=== PATIENT | male | born 1980 | race African-American/Black ===

== ENCOUNTER 2020-03-25 19:32 | Emergency (ER) | payer OTHER ==
[~2020-03-25] VITALS: Ht 185.4 cm; Wt 88.5 kg
[2020-03-25 19:38] VITALS: BP 149/77
--- NOTE | 2020-03-25 19:39 | NUR ---
PT HONG BLS. TAKEN TO BED 7
--- NOTE | 2020-03-25 19:40 | NUR ---
Dr. De La Paz examining patient.
--- NOTE | 2020-03-25 19:40 | NUR ---
RECEIVED PT AWAKE AND ALERT WITH C/O ABDOMINAL PAIN. "I HAD SURGERY IN NOVEMBER AND NOW MY ABDOMEN IS HURTING" PT STATES HAD BLOOD CLOT REMOVED FROM HEAD AFTER SEVERAL TRAUMATIC INJURIES AND EXPERIENCING SEIZURES. IS AWAKE AND ALERT. ABDOMEN IS SOFT AND TENDER. Addendum: 03/25/20 at 2020 by PATIENCE PAIN RATED 10/10
[2020-03-25] MEDS ORDERED: LORazepam 1 MG TAB PO ONE (19:50)
[2020-03-25 20:19] LABS: BASOPHILS # (AUTO) 0.1 K/uL (0.00-0.22); BASOPHILS % (AUTO) 1.6 % (0.0-2.0); EOSINOPHILS % (AUTO) 0.8 % (0.0-4.0); HEMATOCRIT 32.4 % (36-52); HEMOGLOBIN 10.9 g/dL (12.0-18.0); LYMPHOCYTES # (AUTO) 1.7 K/uL (2.0-11.5); LYMPHOCYTES % (AUTO) 41.8 % (20.5-51.1); MEAN CORPUSCULAR HEMOGLOBIN 28 pg (27-31); MEAN CORPUSCULAR HGB CONC 34 g/dL (33-37); MEAN CORPUSCULAR VOLUME 83.4 fL (80-94); MONOCYTES # (AUTO) 0.5 K/uL (0.8-1.0); MONOCYTES % (AUTO) 13.4 % (1.7-9.3); NEUTROPHILS # (AUTO) 1.7 K/uL (1.8-7.7); NEUTROPHILS % (AUTO) 42.4 % (42.2-75.2); PLATELET COUNT (AUTO) 294 K/uL (140-450); RED BLOOD CELL COUNT(AUTO) 3.88 MIL/uL (4.20-6.10); RED CELL DISTRIBUTION WIDTH 17.2 % (11.6-13.7)
[2020-03-25] MEDS ORDERED: ONDANSETRON 4 MG ODT ONE (20:23)
[2020-03-25] MEDS ORDERED: ONDANSETRON 4 MG ODT PO ONE (20:25)
[2020-03-25 20:34] LABS: ANION GAP 14.5 (8-16); CARBON DIOXIDE 29.2 mmol/L (21-32); TOTAL BILIRUBIN 0.3 mg/dL (0.0-1.0)
[2020-03-25 20:40] LABS: POTASSIUM 2.7 mmol/L (3.5-5.1)
--- NOTE | 2020-03-25 21:51 | NUR ---
Patient discharged with v/s stable. Written and verbal after care instructions given and explained. Patient alert, oriented and verbalized understanding of instructions. Ambulatory with steady gait. All questions addressed prior to discharge. ID band removed. Patient advised to follow up with PMD. Rx of ativan, k-dur, zofran ODT given. Patient educated on indication of medication including possible reaction and side effects. Opportunity to ask questions provided and answered.
[2020-03-25 21:52] VITALS: BP 114/64
== END 2020-03-25 21:51 | disposition home or self-care (01) ==
LOC: MED 19:32
DX: E87.6 Hypokalemia (principal); R10.9 Unspecified abdominal pain; R11.0 Nausea; R56.9 Unspecified convulsions; Z98.890 Other specified postprocedural states
CPT/HCPCS: 36415; 80053; 83690; 85025; 99283; Q0162

== ENCOUNTER 2020-03-25 22:58 | Emergency (ER) | payer OTHER ==
[~2020-03-25] VITALS: Ht 180.3 cm; Wt 82.6 kg
--- NOTE | 2020-03-25 22:58 | NUR ---
to bed 8 via ambulance s/p sz. WAS D/C'D FROM THIS ER EARLIER THIS EVENING. PTWENT HOME AND HAD ANOTHER SEIZURE. IS NOW AWAKE ALERT AND ORIENTED. SKIN WARM AND DRY, RESPIRATIONS REGULAR AND UNLABORED, NO SZ ACTIVITY NOTED. SZ PRECAUTIONS IN PLACE
[2020-03-25 23:02] VITALS: BP 134/66
--- NOTE | 2020-03-25 23:02 | NUR ---
PT HONG BLS. TAKEN TO BED 8
--- NOTE | 2020-03-25 23:31 | NUR ---
DR. COLES AT BEDSIDE FOR EXAM
[2020-03-25] MEDS ORDERED: NACL 0.9% 500 ML IV ONE (23:45)
[2020-03-25] MEDS ORDERED: levETIRAcetam 1,000 MG in NACL 0.9% 100 ML IV ONE (23:45)
[2020-03-26] MEDS ORDERED: levETIRAcetam 100 MG/ML VIAL IV ONE (00:24)
--- NOTE | 2020-03-26 01:45 | NUR ---
HAS BEEN DOZING OFF AND ON. READY FOR DISCHARGE. IV D/C'D CATHETER INTACT. NO SZ ACTIVITY NOTED
== END 2020-03-26 01:45 | disposition home or self-care (01) ==
LOC: MED 22:58
DX: R56.9 Unspecified convulsions (principal); Z98.890 Other specified postprocedural states
CPT/HCPCS: 96365; 99284; J1953; J7030

== ENCOUNTER 2020-04-17 21:06 | Emergency (ER) | payer OTHER ==
[~2020-04-17] VITALS: Ht 177.8 cm; Wt 88.5 kg
[2020-04-17 22:06] VITALS: BP 148/76
[2020-04-18] MEDS ORDERED: levETIRAcetam 500 MG TAB PO ONE (00:30)
[2020-04-18 01:00] LABS: BASOPHILS # (AUTO) 0.2 K/uL (0.00-0.22); BASOPHILS % (AUTO) 3.8 % (0.0-2.0); EOSINOPHILS % (AUTO) 0.8 % (0.0-4.0); HEMOGLOBIN 11.7 g/dL (12.0-18.0); LYMPHOCYTES # (AUTO) 1.9 K/uL (2.0-11.5); LYMPHOCYTES % (AUTO) 40.8 % (20.5-51.1); MEAN CORPUSCULAR HEMOGLOBIN 29 pg (27-31); MEAN CORPUSCULAR HGB CONC 33 g/dL (33-37); MEAN CORPUSCULAR VOLUME 85.7 fL (80-94); MONOCYTES # (AUTO) 0.5 K/uL (0.8-1.0); MONOCYTES % (AUTO) 11.3 % (1.7-9.3); NEUTROPHILS % (AUTO) 43.3 % (42.2-75.2); PLATELET COUNT (AUTO) 237 K/uL (140-450); RED BLOOD CELL COUNT(AUTO) 4.09 MIL/uL (4.20-6.10); RED CELL DISTRIBUTION WIDTH 18.8 % (11.6-13.7); WHITE BLOOD COUNT (AUTO) 4.7 K/uL (4.8-10.8)
[2020-04-18 01:27] LABS: ANION GAP 18.8 (8-16); CARBON DIOXIDE 26.8 mmol/L (21-32); CREATININE 1.1 mg/dL (0.6-1.3)
[2020-04-18 01:37] LABS: POTASSIUM 2.6 mmol/L (3.5-5.1)
--- NOTE | 2020-04-18 01:40 | NUR ---
DR CARPENTER NOTIFIED OF CRITICAL LAB VALUE---K 2.6 AND SERUM ALCOHOL 428
[2020-04-18] MEDS ORDERED: MAG SULF 2000 MG/WATER PREMIX 50 ML IV ONE ×2 (02:40→03:10)
[2020-04-18] MEDS ORDERED: POTASSIUM CHL 30 MEQ/ D5-1/2NS 1,000 ML IV ONE (02:40)
--- NOTE | 2020-04-18 03:20 | NUR ---
MAG SULFATE STARTED. RUNNING @ 25ML/HR
[2020-04-18] MEDS ORDERED: POTASSIUM CHL 40 MEQ/ D5-1/2NS 1,000 ML IV ONE (04:10)
--- NOTE | 2020-04-18 07:16 | NUR ---
RECEIVED REPORT FROM DEVEN PARDO FOR CONTINUITY OF CARE. PER REPORT, MAG AND K-RIDER WAS STARTED DURING SALESPERSON FLOWERS.
[2020-04-18] MEDS ORDERED: POTASSIUM CHLORIDE 10 MEQ TABER PO SCH (07:30)
[2020-04-18] MEDS ORDERED: CYANOCOBALAMIN 1000 MCG/ML VIAL IM ONE (10:35)
[2020-04-18] MEDS ORDERED: THIAMINE 200 MG/2 ML VIAL IM ONE (10:35)
[2020-04-18 10:58] VITALS: BP 148/76
--- NOTE | 2020-04-18 10:59 | NUR ---
Patient does not wish to proceed with medical care recommended by DR. AUSTIN. Patient given information related to possible complications, up to and including , which could occur as a result of leaving hospital at this time. Patient verbalizes understanding of risks involved leaving against medical advice. Patient has signed AMA form.
[2020-04-19] MEDS ORDERED: CYANOCOBALAMIN 1,000 MCG TAB PO SCH (09:00)
== END 2020-04-18 10:54 | disposition left against medical advice (07) ==
LOC: MED 21:06
DX: R56.9 Unspecified convulsions (principal); F10.129 Alcohol abuse with intoxication, unspecified; E87.6 Hypokalemia; Y90.9 Presence of alcohol in blood, level not specified
CPT/HCPCS: 36415; 70450; 80048; 85025; 99285; G0482; J3420; J3475; J3411

== ENCOUNTER 2020-04-18 20:50 | Emergency (ER) | payer OTHER ==
[~2020-04-18] VITALS: Ht 182.9 cm; Wt 88.5 kg
[2020-04-18 20:58] VITALS: BP 144/92
[2020-04-18 23:16] LABS: ANION GAP 16.3 (8-16); CARBON DIOXIDE 28.7 mmol/L (21-32); CREATININE 0.8 mg/dL (0.6-1.3)
[2020-04-18 23:25] LABS: MAGNESIUM 2.1 mg/dL (1.8-2.4)
[2020-04-18 23:50] LABS: BASOPHILS # (AUTO) 0.1 K/uL (0.00-0.22); BASOPHILS % (AUTO) 3.8 % (0.0-2.0); EOSINOPHILS % (AUTO) 1.4 % (0.0-4.0); HEMATOCRIT 31.9 % (36-52); HEMOGLOBIN 10.8 g/dL (12.0-18.0); LYMPHOCYTES # (AUTO) 1.4 K/uL (2.0-11.5); LYMPHOCYTES % (AUTO) 39.1 % (20.5-51.1); MEAN CORPUSCULAR HEMOGLOBIN 29 pg (27-31); MEAN CORPUSCULAR HGB CONC 34 g/dL (33-37); MEAN CORPUSCULAR VOLUME 86.2 fL (80-94); MONOCYTES # (AUTO) 0.3 K/uL (0.8-1.0); MONOCYTES % (AUTO) 9.7 % (1.7-9.3); NEUTROPHILS # (AUTO) 1.6 K/uL (1.8-7.7); PLATELET COUNT (AUTO) 208 K/uL (140-450); RED CELL DISTRIBUTION WIDTH 19.5 % (11.6-13.7); WHITE BLOOD COUNT (AUTO) 3.6 K/uL (4.8-10.8)
[2020-04-19 00:15] VITALS: BP 144/92
--- NOTE | 2020-04-19 00:15 | NUR ---
Patient discharged with v/s stable. Written and verbal after care instructions given and explained. Patient verbalized understanding. Ambulatory with steady gait. All questions addressed prior to discharge. Advised to follow up with PMD.
== END 2020-04-19 00:15 | disposition home or self-care (01) ==
LOC: MED 20:50
DX: R56.9 Unspecified convulsions (principal); E87.6 Hypokalemia; F10.10 Alcohol abuse, uncomplicated; Z91.14 Patient's other noncompliance with medication regimen; Y90.0 Blood alcohol level of less than 20 mg/100 ml
CPT/HCPCS: 36415; 80048; 83735; 85025; 99283; G0482